=== PATIENT | female | born 1960 | race Two or more races ===

== ENCOUNTER 2017-02-09 15:05 | Emergency (ER) | payer SELFPAY ==
[2017-02-09 15:17] VITALS: BP 142/69; PULSE 81; RESP 16; TEMP 98.8; O2SAT 91
[2017-02-09] MEDS ORDERED: PROPARACAINE 0.5% 15 ML OPHT DROP OP ONE (15:19)
[2017-02-09] MEDS ORDERED: diphenhydrAMINE 25 MG CAP PO ONE (15:49)
--- NOTE | 2017-02-09 15:49 | EDPHY ---
H & P Time Seen by Provider: 02/09/17 15:17 HPI/ROS: 56-year-old female presents complaining of approximately 30 minutes ago while working in her garden she felt like she got something in her left eye, she then proceeded to wash for 15-20 minutes with cold water. She denies difficulty with her vision, no fevers or chills. Review of systems General no fever no chills no weakness HEENT no eye pain no eye discharge. Positive eye redness, no sore throat Respiratory no cough, no shortness of breath Cardiac no chest pain, no peripheral edema GI no abdominal pain, no diarrhea, no constipation, no nausea, no vomiting no flank pain, no hematuria, no dysuria Musculoskeletal no myalgias, no joint pain Heme no easy bruising, no easy bleeding Endo no polyuria, no polydipsia Skin no rashes, no pruritus Neuro no syncope, no dizziness, no headaches Psych is no suicidal ideation, no homicidal ideation Past Medical/Surgical History: Rheumatoid arthritis Social History: Lives with family Smoking Status: Never smoked Physical Exam: Alert and oriented in no acute distress nontoxic appearance, afebrile Atraumatic normocephalic Neck no JVD Lungs clear to auscultation, no respiratory distress Heart regular rate and rhythm Extremities no cyanosis clubbing edema Bilateral eyes with chemosis, conjunctival edema, mild erythema, clear discharge Fluorescein negative pooling negative abrasion negative uptake Slit-lamp negative Constitutional: Initial Vital Signs Temperature (C) 37.1 C 02/09/17 15:16 Heart Rate 81 02/09/17 15:16 Respiratory Rate 16 02/09/17 15:16 Blood Pressure 142/69 H 02/09/17 15:16 O2 Sat (%) 91 L 02/09/17 15:16 O2 Delivery Mode Room Air Allergies/Adverse Reactions: No Known Allergies Allergy (Unverified 02/09/17 15:17) Home Medications: Medication Instructions Recorded Methotrexate 02/09/17 Naphazoline HCl/Pheniramine 1 drops EACHEYE QID #0 drops 02/09/17 [Opcon-A Eye Drops] Medical Decision Making ED Course/Re-evaluation: Patient seen and evaluated for complaint of possible foreign body in left eye after working in her garden. Differential diagnosis considered Foreign body left eye, corneal abrasion, conjunctivitis, scleritis Impression Bilateral allergic reaction, chemosis bilateral conjunctiva No evidence of foreign body Plan Diphenhydramine Prednisone 1 dose Allergy eyedrops Cool compresses Follow-up PCP - Data Points Medications Given: Discontinued Medications Diphenhydramine HCl (Benadryl) 50 mg PO EDNOW ONE Stop: 02/09/17 15:50 Last Admin: 02/09/17 15:57 Dose: 50 mg Prednisone (Prednisone) 60 mg PO EDNOW ONE Stop: 02/09/17 15:51 Last Admin: 02/09/17 15:57 Dose: 60 mg Proparacaine HCl (Alcaine 0.5%) 2 drops OP EDNOW ONE Stop: 02/09/17 15:20 Last Admin: 02/09/17 15:57 Dose: 2 drops Departure - Departure Disposition: Home, Routine, Self-Care Clinical Impression: Conjunctivitis, allergic Condition: Good Instructions: Allergies (ED), Conjunctivitis (ED) Referrals: NONE *PRIMARY CARE P,. [Primary Care Provider] - As per Instructions Prescriptions: Naphazoline HCl/Pheniramine [Opcon-A Eye Drops] 1 drops EACHEYE QID #0 drops Print Language: Lao
[2017-02-09] MEDS ORDERED: predniSONE 20 MG TAB PO ONE (15:50)
== END 2017-02-09 16:07 | disposition home or self-care (01) ==
LOC: CED 15:05
DX: H10.13 Acute atopic conjunctivitis, bilateral (principal)